=== PATIENT | male | born 1955 | race Caucasian/White ===

== ENCOUNTER 2019-12-19 11:51 | Outpatient (CLI) | payer MEDICARE, OTHER ==
[2019-12-19 12:22] LABS: BASOPHILS # (AUTO) 0.1 10^3/uL (0.0-0.1); EOSINOPHILS # (AUTO) 0.1 10^3/uL (0.0-0.7); EOSINOPHILS % (AUTO) 2.2 %; HGB - HEMOGLOBIN 14.6 g/dL (14.0-18.0); LYMPHOCYTES # (AUTO) 1.3 10^3/uL (1.5-3.5); LYMPHOCYTES % (AUTO) 26.1 %; MEAN CORPUSCULAR HEMOGLOBIN 34.1 pg (27.0-31.0); MEAN CORPUSCULAR VOLUME 94.6 fL (80.0-94.0); MEAN PLATELET VOLUME 9.4 fL (7.4-11.4); MONOCYTES # (AUTO) 0.4 10^3/uL (0.0-1.0); MONOCYTES % (AUTO) 7.3 %; NEUTROPHILS # (AUTO) 3.2 10^3/uL (1.5-6.6); PLT - PLATELET COUNT 151 10^3/uL (130-450); RED BLOOD COUNT 4.28 10^6/uL (4.70-6.10); RED CELL DISTRIBUTION WIDTH 14.1 % (12.0-15.0); WHITE BLOOD COUNT 5.1 x10^3/uL (4.8-10.8)
[2019-12-19 12:24] LABS: GLUCOSE, URINE (UA) NEGATIVE (NEGATIVE); KETONES,URINE (UA) TRACE mg/dL (NEGATIVE); LEUKOCYTE ESTERASE, URINE TRACE (NEGATIVE); NITRITE,URINE NEGATIVE (NEGATIVE); OCCULT BLOOD,URINE NEGATIVE (NEGATIVE); PH,URINE 5.5 PH (5.0-7.5); PROTEIN,URINE NEGATIVE (NEGATIVE); UROBILINOGEN,URINE 1 (NORMAL) E.U./dL (NORMAL)
[2019-12-19 12:33] LABS: BILIRUBIN,URINE SMALL (NEGATIVE); CLARITY,URINE CLEAR (CLEAR); ICTOTEST,URINE POSITIVE
[2019-12-19 12:40] LABS: BACTERIA,URINE Rare /HPF (None Seen); RBC,URINE None Seen /HPF (0-5); SQUAMOUS EPITHELIAL CELL,UR MOD Squamous (<= Few)
[2019-12-19 12:53] LABS: ALBUMIN 3.3 g/dL (3.2-5.5); BILIRUBIN,TOTAL 2.6 mg/dL (0.2-1.0); CALCIUM 8.9 mg/dL (8.5-10.3); CREATININE 1.2 mg/dL (0.6-1.2); TOTAL PROTEIN 6.6 g/dL (6.7-8.2)
== END 2019-12-19 11:52 | disposition home or self-care (01) ==
LOC: LAB 11:51
PROVIDERS: ATTEND Physician Assistant Medical
DX: R53.83 Other fatigue (principal); Z20.828 Contact with and (suspected) exposure to other viral communicable diseases
CPT/HCPCS: 36415; 80053; 81001; 84443; 85025; U0004; 81599; 87086

== ENCOUNTER 2021-01-03 09:38 | Outpatient (CLI) | payer MEDICARE, OTHER ==
--- NOTE | 2021-01-03 12:28 | XRAY Report ---
PROCEDURE: Lumbar Spine 2 View INDICATIONS: LOW BACK PAIN, BLE EDEMA TECHNIQUE: 2 views of the lumbar spine were acquired. COMPARISON: None. FINDINGS: Bones: 5 [id number] vertebrae are present. There is normal bony alignment. No vertebral body compression fractures. No suspicious bony lesions. Mild degenerative disc disease at L1-L2, L3-L4 a nd L5-S1. Soft tissues: Overlying bowel gas pattern is normal. No suspicious soft tissue calcifications. IMPRESSION: Mild degenerative disc disease. Reviewed by: Dany Ellis MD on 01/03/2021 12:27 PM PDT Approved by: Dany Ellis MD on 01/03/2021 12:27 PM PDT Station ID: [id number]
== END 2021-01-03 09:39 | disposition home or self-care (01) ==
LOC: DI 09:38
PROVIDERS: ATTEND Physician Assistant Medical
DX: M51.36 Other intervertebral disc degeneration, lumbar region (principal); M51.37 Other intervertebral disc degeneration, lumbosacral region; I11.9 Hypertensive heart disease without heart failure
CPT/HCPCS: 93306

== ENCOUNTER 2021-07-31 14:04 | Outpatient (CLI) | payer MEDICARE, OTHER ==
--- NOTE | 2021-07-31 17:17 | XRAY Report ---
PROCEDURE: Foot 3 View BILAT INDICATIONS: CHRONIC GOUT TECHNIQUE: 3 views of the right foot and left foot were acquired. COMPARISON: None FINDINGS: Bones: No fractures or dislocations. Erosive changes noted in the medial margin of the base of the l eft first proximal phalange and the medial margin of the head of the right first metatarsal. Osteoart hritic degenerative changes noted in the midfoot and the bilateral first metatarsal phalange and firs t DIP joint. Bilateral calcaneal bone spurs. Soft tissues: No tibiotalar joint effusion. Achilles tendon appears normal. IMPRESSION: Erosive changes in the left first proximal phalange in the right first metatarsal. Reviewed by: Brisa Nolasco MD, PhD on 07/31/2021 5:15 PM PST Approved by: Brisa Nolasco MD, PhD on 07/31/2021 5:15 PM PST Station ID: [id number]
--- NOTE | 2021-07-31 17:18 | XRAY Report ---
PROCEDURE: Hand 3 View BILAT INDICATIONS: CHRONIC GOUT TECHNIQUE: 3 views of the hand(s) acquired. COMPARISON: None FINDINGS: Bones: No acute fractures or dislocations. Chronic right ulnar styloid process fracture versus acces gavin ossicle. No suspicious bony lesions. No osseous erosive changes. Soft tissues: No suspicious soft tissue calcifications. IMPRESSION: No osseous erosive changes. Reviewed by: Brisa Nolasco MD, PhD on 07/31/2021 5:16 PM PST Approved by: Brisa Nolasco MD, PhD on 07/31/2021 5:16 PM PST Station ID: [id number]
== END 2021-07-31 14:05 | disposition home or self-care (01) ==
LOC: DI 14:04
PROVIDERS: ATTEND Student in an Organized Health Care Education/Training Program
DX: M10.9 Gout, unspecified (principal); M85.872 Other specified disorders of bone density and structure, left ankle and foot; M85.871 Other specified disorders of bone density and structure, right ankle and foot

== ENCOUNTER 2022-11-03 11:26 | Outpatient (CLI) | payer MEDICARE, OTHER ==
--- NOTE | 2022-11-03 16:05 | XRAY Report ---
PROCEDURE: Hips 2V BILAT INDICATIONS: HIP PX TECHNIQUE: Frontal view of the pelvis and lateral view of both hips acquired. COMPARISON: None. FINDINGS: Bones: No fractures or dislocations. No suspicious bony lesions. Mild bilateral hip joint space n arrowing. Soft tissues: No suspicious soft tissue calcifications . IMPRESSION: No acute bony abnormality. Mild degenerative changes of both hips. If symptoms persist, follow-up radiographs and/or CT or MRI may be helpful for further evaluation. Reviewed by: Cleveland Kwon MD on 11/03/2022 4:04 PM PDT Approved by: Cleveland Kwon MD on 11/03/2022 4:04 PM PDT Station ID: [id number]
== END 2022-11-03 11:27 | disposition home or self-care (01) ==
LOC: DI 11:26
PROVIDERS: ATTEND Family Medicine
DX: M16.0 Bilateral primary osteoarthritis of hip (principal)

== ENCOUNTER 2024-02-14 06:25 | Day surgery (SDC) | payer MEDICARE, OTHER ==
--- NOTE | 2024-02-14 05:35 | ANESTHESIA ---
Pre-Anesthesia VS, & Labs - Diagnosis Screening - Procedure Colonoscopy Home Medications and Allergies Home Medications: Ambulatory Orders Citalopram Hydrobromide [Celexa] 20 mg PO DAILY 02/04/24 Colchicine 0.6 mg PO PRN PRN 02/04/24 Losartan Potassium [Cozaar] 100 mg PO DAILY 02/04/24 Metoprolol Tartrate [Lopressor] 100 mg PO DAILY 02/04/24 Omeprazole 20 mg PO DAILY 02/04/24 Simvastatin [Zocor] 20 mg PO DAILY 02/04/24 allopurinoL [Zyloprim] 100 mg PO DAILY 02/04/24 hydroCHLOROthiazide [Hydrodiuril] 12.5 mg PO DAILY 02/04/24 traZODone [Desyrel] 50 mg PO HS 02/04/24 Citalopram Hydrobromide [Celexa] 20 mg PO DAILY 02/04/24 Colchicine 0.6 mg PO PRN PRN 02/04/24 Losartan Potassium [Cozaar] 100 mg PO DAILY 02/04/24 Metoprolol Tartrate [Lopressor] 100 mg PO DAILY 02/04/24 Omeprazole 20 mg PO DAILY 02/04/24 Simvastatin [Zocor] 20 mg PO DAILY 02/04/24 allopurinoL [Zyloprim] 100 mg PO DAILY 02/04/24 hydroCHLOROthiazide [Hydrodiuril] 12.5 mg PO DAILY 02/04/24 traZODone [Desyrel] 50 mg PO HS 02/04/24 Allergies/Adverse Reactions: Allergies Allergy/AdvReac Type Severity Reaction Status Date / Time No Known Drug Allergies Allergy Verified 02/04/24 10:53 Anes History & Medical History - Medical History Cardiovascular: reports: Hypertension, High cholesterol Pulmonary: reports: Sleep apnea, CPAP use, Other Gastrointestinal: reports: GERD, Other Urinary: reports: None Musculoskeletal: reports: Osteoarthritis, Gout, Chronic back pain Endocrine/Autoimmune: reports: None Skin: reports: None - Surgical History General: reports: Colonoscopy, EGD, Other Exam General: Alert, Oriented x3, Cooperative Dental: WNL Mallampati classification: III Thyromental Distance: less than 4 cm Plan Anesthesia Type: General Consent for Procedure(s) Verified and Reviewed: Yes Code Status: Attempt Resuscitation ASA classification: 2-Mild systemic disease Is this case an emergency?: No
[~2024-02-14 06:25] MED LIST: PROPOFOL 500 MG/50 ML 500 MG/50 ML VIAL ONE
[2024-02-14] MEDS: LACTATED RINGERS 1,000 ML IV ONE ×2 (06:30→08:11)
[2024-02-14] MEDS ORDERED: PROPOFOL 200 MG/20 ML VIAL IVP ONE (08:17)
[2024-02-14 08:59] VITALS: BP 140/65; O2SAT 98
--- NOTE | 2024-02-14 12:30 | ANESTHESIA POST OP EVALUATION ---
Anesthesia Post Eval - Post Anesthesia Eval Vitals: Last Vital Signs Temp 36.0 C L 02/14/24 08:11 Pulse 87 02/14/24 08:45 Resp 17 02/14/24 08:45 BP 140/65 H 02/14/24 08:45 Pulse Ox 98 02/14/24 08:45 O2 Flow Rate CV Function Including HR & BP: Stable Pain Control: Satisfactory Nausea & Vomiting: Negative Mental Status: Baseline Respiratory Status: Airway Patent Hydration Status: Satisfactory Anesthesia Complications: None
== END 2024-02-14 06:26 | disposition home or self-care (01) ==
LOC: SDS 06:25
PROVIDERS: ATTEND Surgery
DX: Z12.11 Encounter for screening for malignant neoplasm of colon (principal); K57.30 Diverticulosis of large intestine without perforation or abscess without bleeding; E66.9 Obesity, unspecified; G47.30 Sleep apnea, unspecified; I10 Essential (primary) hypertension; Z86.010 Personal history of colon polyps; Z87.891 Personal history of nicotine dependence
CPT/HCPCS: G0121; J7120